=== PATIENT | female | born 1980 | race Hispanic/Latino ===

== ENCOUNTER 2017-12-02 15:21 | Observation (INO) | payer MEDICARE ==
[2017-12-02] MEDS ORDERED: Iohexol 240 (50 ml) PO ONE (15:44)
[2017-12-02] MEDS ORDERED: Sodium Chloride 0.9% 1,000 ML IV STA (15:44)
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
[2017-12-02 16:15] LABS: SQUAMOUS EPITHIAL 20 /hpf (0-5); URINE BACTERIA OCC (<OCC); URINE BILIRUBIN NEGATIVE (NEGATIVE); URINE BLOOD NEGATIVE (NEGATIVE); URINE CLARITY CLOUDY (Clear); URINE COLOR YELLOW (YELLOW); URINE GLUCOSE (UA) NEG (Normal); URINE LEUKOCYTE ESTERASE MOD Leu/uL (Negative); URINE PROTEIN NEGATIVE (NEGATIVE); URINE UROBILINOGEN 0.2-1.0 mg/dL (0.2-1.0)
[2017-12-02 16:25] LABS: PHENCYCLIDINE, UR NEGATIVE (NEGATIVE)
[2017-12-02 16:28] LABS: BARBITURATES, UR NEGATIVE (NEGATIVE); BENZODIAZEPINES, UR POSITIVE (NEGATIVE); OPIATES, UR POSITIVE (NEGATIVE)
[2017-12-02] MEDS ORDERED: Iohexol 240 (50 ml) ONE (16:35)
[2017-12-02 16:38] LABS: BASO # 0.1 K/uL (0.0-0.2); BASO % 0.5 % (0.0-2.0); EOS # 0.1 K/uL (0.0-0.7); HEMOGLOBIN 11.2 g/dL (12.0-16.0); LYMPH # 1.6 K/uL (1.0-4.3); LYMPH % 15.1 % (20.0-40.0); MEAN CELL VOLUME 98.6 fl (81.0-99.0); MEAN CORPUSCULAR HEMOGLOBIN 32.5 pg (27.0-31.0); MEAN PLATELET VOLUME 8.5 fl (7.2-11.7); MONO # 0.6 K/uL (0.0-0.8); MONO % 5.9 % (0.0-10.0); NEUT % 77.5 % (50.0-75.0); RBC 3.45 Mil/uL (3.80-5.20); RED CELL DISTRIBUTION WIDTH 14.9 % (11.5-14.5); WHITE BLOOD COUNT 10.3 K/uL (4.8-10.8)
[2017-12-02 16:39] LABS: VENOUS BLOOD GAS BASE EXCESS -0.5 mmol/L (0.0-2.0); VENOUS BLOOD GAS PCO2 46 mmHg (40-60); VENOUS BLOOD GAS PO2 14 mm/Hg (30-55); VENOUS BLOOD PH 7.35 (7.32-7.43)
[2017-12-02 16:48] LABS: BLOOD UREA NITROGEN 14 mg/dl (7-17); CALCIUM 8.7 mg/dL (8.4-10.2); GFR AFRICAN-AMERICAN > 60; GFR NON-AFRICAN AMERICAN > 60
[2017-12-02 16:49] LABS: ALB/GLOB RATIO 1.3 (1.0-2.1); ALBUMIN 3.4 g/dL (3.5-5.0); ALT/SGPT 49 U/L (9-52); AST/SGOT 29 U/L (14-36); LIPASE 33 U/L (23-300)
[2017-12-02] MEDS ORDERED: Sodium Chloride 0.9% 50 ML IV ONE (17:38)
[2017-12-02] MEDS ORDERED: Iohexol 300 100 ML IJ ONE (17:38)
[2017-12-02 18:07] LABS: ACETAMINOPHEN < 10.0 ug/ml (10.0-30.0); SALICYLATE < 1.0 mg/dl
[2017-12-02] MEDS ORDERED: cefTRIAXone (Rocephin) 1 gm Inj IV STA (18:39)
--- NOTE | 2017-12-02 18:39 | CT ---
PROCEDURE: CT Abdomen and Pelvis with contrast HISTORY: Abdominal pain COMPARISON: None. TECHNIQUE: Contrast dose: 90 cc Visipaque 320 Radiation dose: Total exam DLP = 513.94 mGy-cm. This CT exam was performed using one or more of the following dose reduction techniques: Automated exposure control, adjustment of the mA and/or kV according to patient size, and/or use of iterative reconstruction technique. FINDINGS: LOWER THORAX: Unremarkable. Postoperative findings related to gastric bypass at the gastroesophageal junction. LIVER: Unremarkable. No gross lesion. There is mild intrahepatic bile duct dilatation consistent with prior cholecystectomy. GALLBLADDER AND BILE DUCTS: Status post cholecystectomy. No abnormality is seen in the gallbladder fossa. Common bile duct measures 10.2 mm. The bile duct is seen in its entirety without intrinsic or extrinsic abnormality. PANCREAS: Unremarkable. No gross lesion or ductal dilatation. SPLEEN: Unremarkable. ADRENALS: Unremarkable. No mass. KIDNEYS AND URETERS: Unremarkable. No hydronephrosis. No solid mass. VASCULATURE: Unremarkable. No aortic aneurysm. BOWEL: Postoperative changes left upper quadrant related to gastric bypass. Soft tissue luminal mass proximal small bowel visualized on axial series 3/image 82 and confirmed on coronal series 601/image 36. The appearance suggest intussusception. Proximally the bowel is dilated. Constipation without fecal impaction or obstruction. APPENDIX: Normal appendix. PERITONEUM: Unremarkable. No free fluid. No free air. LYMPH NODES: Unremarkable. No enlarged lymph nodes. BLADDER: Unremarkable. REPRODUCTIVE: Unremarkable. BONES: No acute fracture. OTHER FINDINGS: None. IMPRESSION: CT manifestations of intussusception proximal small bowel described in greater detail above. Postoperative findings left upper quadrant related to gastric bypass. Additional benign and/or incidental findings described above. Communication of results: I discussed findings with the attending physician emergency department Dr. Pan at 18:37. The study was completed at 18:10
[2017-12-02] MEDS ORDERED: cefTRIAXone 1,000 MG in PED IV SYRINGE 1 SYR IVPB STA (18:43)
[2017-12-02] MEDS ORDERED: cefTRIAXone (Rocephin) 1 gm Inj ONE (18:45)
--- NOTE | 2017-12-02 19:54 | CP.PCM.CON ---
<Caden Rosales - Last Filed: 12/02/17 21:09> History of Present Illness - History of Present Illness History of Present Illness: Surgery Consult Note. Dr. Vo 37yo F with PMHx of Anxiety, Bipolar Disorder, Seizure disorder here for evaluation of abdominal pain. As per ED staff, patient was brought in by EMS due to friend noticing increased somnolence and slurred speech. Patient reports that she has had chronic abdominal pain off and on for the past 1 year. She attributes these pains to recurrent UTIs. She states that she usually has nausea and vomiting after she gets UTIs. She states that this episode has been ongoing for the past 2.5 weeks, starts in the left lower back and radiates to the LLQ, LUQ and RUQ. She states that she saw her Pain Management doctor (Dr. Fernandes) on Friday who stated that she needed to be further evaluated by GI and specialists. She has been prescribed Oxycodone 10mg q4h prn however, she states that she has taken more than 15tabs of Oxycodone 10mg over the last 2 days. She states that she also had dysuria, urinary urgency, and urinary frequency over the same period of time and has not been taking any antibiotics during this episode as she "gets these symptoms all the time and is resistant to many different antibiotics she has tried in the past. Patient also reports that she has a hx of Murali-en-Y gastric bypass surgery done in [address] Hernandez in [facility]. She reports complications of intussusception in 2006 and 2007 and had surgical reduction and enteropexy performed by various other surgeons, unable to provide names. She also reports that in 2008, she had a bowel obstruction due to an internal hernia and it was repaired via an exploratory laparotomy by another surgeon, unknown name. She last followed up with Dr. Hernandez 7 months ago. She has had multiple pneumatic esophageal dilatations performed over the past 3 years due to being unable to tolerate PO intake, last performed one year ago by Dr. Hammond. Currently, she reports that her last BM was yesterday morning, and has been having regular flatus. Denies any N/V/D. Denies any fevers or chills. No sick contacts. Denies possible . PMD: none Bariatric Surgeon: Dr. Hernandez in [facility] GI: Dr. Hammond PMHx: Anxiety, Bipolar Disorder, Seizure disorder PSHx: Murali-en-Y Gastric Bypass 2005, Intussusception x 2 w enteropexy 2006, 2007 , Reduction of internal hernia 2008. Multiple pneumatic esophageal dilatations. Surgery on bilateral kidneys for ureteral reflux at age 11 and 15 Family Hx: Non-contributory Social Hx: Current Tobacco use. Denies ETOH. Opioid use. (Hx of Cocaine and MDMA use upon chart review). Allergy: Levofloxacin (Rash) Review of Systems - Review of Systems All systems: reviewed and no additional remarkable complaints except - Constitutional Constitutional: absent: Chills, Fever - Cardiovascular Cardiovascular: absent: Chest Pain, Dyspnea - Respiratory Respiratory: absent: Dyspnea - Gastrointestinal Gastrointestinal: Abdominal Pain. absent: Diarrhea, Hematemesis, Hematochezia, Nausea, Vomiting - Genitourinary Genitourinary: Difficulty Urinating, Dysuria, Urinary Frequency, Urinary Urgency , Freq UTI, Hx /Renal Surgery - Musculoskeletal Musculoskeletal: Back Pain Past Patient History - Infectious Disease Hx of Infectious Diseases: None - Past Medical History & Family History Past Medical History?: Yes Past Family History: Reviewed and not pertinent - Past Social History Smoking Status: Light Smoker < 10 Cigarettes Daily Alcohol: None Drugs: Opiates, Prescription medications - CARDIAC Hx Cardiac Disorders: No - PULMONARY Hx Respiratory Disorders: No - NEUROLOGICAL Hx Seizures: Yes - HEENT Hx HEENT Problems: No - RENAL Other/Comment: Recurrent UTIs per patient - ENDOCRINE/METABOLIC Hx Endocrine Disorders: No - HEMATOLOGICAL/ONCOLOGICAL Hx Human Immunodeficiency Virus (HIV): No - INTEGUMENTARY Hx Dermatological Problems: No - MUSCULOSKELETAL/RHEUMATOLOGICAL Hx Falls: Yes - GASTROINTESTINAL Hx Bowel Surgery: Yes (gastric bypass) Other/Comment: hernia repair 6 yrs ago,intusseption,blockage in the urethra, obstruction in the intestine-6 yrs ago - PSYCHIATRIC Hx Anxiety: Yes Hx Bipolar Disorder: Yes (Possible) - SURGICAL HISTORY Hx Surgeries: Yes Hx Gastric Bypass Surgery: Yes Hx Herniorrhaphy: Yes (abdomnial) Other/Comment: Gastic Bypass, SBO, Hernia - ANESTHESIA Hx Anesthesia: Yes Hx Anesthesia Reactions: No Hx Malignant Hyperthermia: No Meds Allergies/Adverse Reactions: Allergies Allergy/AdvReac Type Severity Reaction Status Date / Time levofloxacin [From Levaquin] Allergy RASH Verified 12/02/15 15:42 Physical Exam - Constitutional Appears: Non-toxic, No Acute Distress - Head Exam Head Exam: ATRAUMATIC, NORMAL INSPECTION, NORMOCEPHALIC - Eye Exam Eye Exam: EOMI, Normal appearance. absent: Scleral icterus - ENT Exam ENT Exam: Mucous Membranes Moist - Respiratory Exam Respiratory Exam: NORMAL BREATHING PATTERN. absent: Accessory Muscle Use, Wheezes - Cardiovascular Exam Cardiovascular Exam: RRR. absent: JVD - GI/Abdominal Exam GI & Abdominal Exam: Soft. absent: Distended, Firm, Guarding, Rebound Additional comments: Tender to palpation in the RUQ, LLQ and LUQ. States that she has some pain radiating to the LUQ and epigastric region upon palpation of the Right Mid Abdomen. No Guarding, soft, non-distended. - Extremities Exam Extremities exam: Positive for: normal inspection. Negative for: calf tenderness - Neurological Exam Neurological exam: Alert, Oriented x3 - Skin Skin Exam: Dry, Intact, Normal Color, Warm Results - Vital Signs Recent Vital Signs: Last Vital Signs Temp 97.7 F 12/02/17 17:18 Pulse 82 12/02/17 17:18 Resp 18 12/02/17 17:18 BP 102/62 12/02/17 17:18 Pulse Ox 97 12/02/17 18:45 - Labs Result Diagrams: 12/02/17 16:34 12/02/17 16:34 Labs: Laboratory Results - last 24 hr 12/02/17 12/02/17 12/02/17 15:44 16:01 16:01 WBC RBC Hgb Hct MCV MCH MCHC RDW Plt Count MPV Neut % (Auto) Lymph % (Auto) [place] % (Auto) Eos % (Auto) Baso % (Auto) Neut # (Auto) Lymph # (Auto) [place] # (Auto) Eos # (Auto) Baso # (Auto) pO2 14 L VBG pH 7.35 VBG pCO2 46 VBG HCO3 22.7 VBG Total CO2 26.8 VBG O2 Sat (Calc) 20.8 L VBG Base Excess -0.5 L VBG Potassium 4.3 Sodium 138.0 Chloride 107.0 Glucose 89 Lactate 0.5 L FiO2 21.0 Potassium Carbon Dioxide Anion Gap BUN Creatinine Est GFR ( Amer) Est GFR (Non-Af Amer) Random Glucose Calcium Total Bilirubin AST ALT Alkaline Phosphatase Total Protein Albumin Globulin Albumin/Globulin Ratio Lipase Venous Blood Potassium 4.3 Urine Color Yellow Urine Clarity Cloudy Urine pH 6.0 Ur Specific [place] 1.018 Urine Protein Negative Urine Glucose (UA) Neg Urine Ketones Negative Urine Blood Negative Urine Nitrate Negative Urine Bilirubin Negative Urine Urobilinogen 0.2-1.0 Ur Leukocyte Esterase Mod Urine RBC (Auto) 3 Urine Microscopic WBC 12 H Ur Squamous Epith Cells 20 H Urine Bacteria Occ H Salicylates Urine Opiates Screen Positive H Urine Methadone Screen Negative Acetaminophen Ur Barbiturates Screen Negative Ur Phencyclidine Scrn Negative Ur Amphetamines Screen Negative U Benzodiazepines Scrn Positive U Oth Cocaine Metabols Negative U Cannabinoids Screen Negative Alcohol, Quantitative 12/02/17 12/02/17 12/02/17 16:34 16:34 17:50 WBC 10.3 D RBC 3.45 L Hgb 11.2 L Hct 34.0 MCV 98.6 D MCH 32.5 H MCHC 33.0 RDW 14.9 H Plt Count 292 MPV 8.5 Neut % (Auto) 77.5 H Lymph % (Auto) 15.1 L [place] % (Auto) 5.9 Eos % (Auto) 1.0 Baso % (Auto) 0.5 Neut # (Auto) 8.0 H Lymph # (Auto) 1.6 [place] # (Auto) 0.6 Eos # (Auto) 0.1 Baso # (Auto) 0.1 pO2 VBG pH VBG pCO2 VBG HCO3 VBG Total CO2 VBG O2 Sat (Calc) VBG Base Excess VBG Potassium Sodium 138 Chloride 107 Glucose Lactate FiO2 Potassium 4.5 Carbon Dioxide 25 Anion Gap 11 BUN 14 Creatinine 0.8 Est GFR ( Amer) > 60 Est GFR (Non-Af Amer) > 60 Random Glucose 87 Calcium 8.7 Total Bilirubin 0.2 AST 29 ALT 49 Alkaline Phosphatase 184 H Total Protein 6.1 L Albumin 3.4 L Globulin 2.7 Albumin/Globulin Ratio 1.3 Lipase 33 Venous Blood Potassium Urine Color Urine Clarity Urine pH Ur Specific [place] Urine Protein Urine Glucose (UA) Urine Ketones Urine Blood Urine Nitrate Urine Bilirubin Urine Urobilinogen Ur Leukocyte Esterase Urine RBC (Auto) Urine Microscopic WBC Ur Squamous Epith Cells Urine Bacteria Salicylates < 1.0 Urine Opiates Screen Urine Methadone Screen Acetaminophen < 10.0 L Ur Barbiturates Screen Ur Phencyclidine Scrn Ur Amphetamines Screen U Benzodiazepines Scrn U Oth Cocaine Metabols U Cannabinoids Screen Alcohol, Quantitative < 10 Assessment & Plan - Assessment and Plan (Free Text) Assessment: 37yo F with left back pain, abdominal pain, and dysuria - CT Abd/Pelvis noted: Possible Intussusception with some proximal bowel dilation. Stool in colon with no signs of acute obstruction. +Constipation Plan: - Patient is currently showing no signs of obstruction. Recommend starting CLD. Advance diet as tolerated - Bowel regimen: Mag citrate and dulcolax suppository - No acute general surgical intervention warranted at this time - Recommend close follow up with patient's bariatric surgeon - continue treatment of UTI as per primary team Further recs as per Dr. Tavo Rosales PGY1 surgery pager: [phone] <Qi Vo - Last Filed: 12/03/17 19:41> Meds - Medications Medications: Current Medications Clonazepam (Klonopin) 1 mg PO BID [facility] Last Admin: 12/03/17 17:37 Dose: 1 mg Enoxaparin Sodium (Lovenox) 40 mg SC DAILY [facility] PRN Reason: Protocol Last Admin: 12/03/17 09:26 Dose: 40 mg Famotidine (Pepcid) 40 mg PO DAILY [facility] Last Admin: 12/03/17 09:26 Dose: 40 mg Sodium Chloride (Sodium Chloride 0.9%) 1,000 mls @ 100 mls/hr IV .Q10H [facility] Stop: 12/03/17 22:14 Last Admin: 12/02/17 22:53 Dose: 100 mls/hr Ceftriaxone Sodium 2 gm/ (Sodium Chloride) 100 mls @ 100 mls/hr IVPB DAILY [facility] PRN Reason: Protocol Last Admin: 12/03/17 09:27 Dose: 100 mls/hr Levetiracetam (Keppra) 750 mg PO TID [facility] Last Admin: 12/03/17 17:33 Dose: 750 mg Oxycodone HCl (Oxycodone Immediate Release Tab) 10 mg PO QID [facility] Last Admin: 12/03/17 17:37 Dose: 10 mg Pantoprazole Sodium (Protonix Ec Tab) 40 mg PO DAILY [facility] Last Admin: 12/03/17 09:26 Dose: 40 mg Topiramate (Topamax) 200 mg PO BID [facility] Last Admin: 12/03/17 17:34 Dose: 200 mg Results - Vital Signs Recent Vital Signs: Last Vital Signs Temp 98.2 F 12/03/17 15:53 Pulse 78 12/03/17 15:53 Resp 18 12/03/17 15:53 BP 90/62 L 12/03/17 15:53 Pulse Ox 98 12/03/17 15:53 - Labs Result Diagrams: 12/03/17 06:10 12/03/17 06:10 Labs: Laboratory Results - last 24 hr 12/03/17 12/03/17 06:10 06:10 WBC 5.3 RBC 3.25 L Hgb 10.9 L Hct 31.6 L MCV 97.5 MCH 33.4 H MCHC 34.3 RDW 14.3 Plt Count 301 Sodium 139 Potassium 4.1 Chloride 110 H Carbon Dioxide 22 Anion Gap 11 BUN 10 Creatinine 0.6 L Est GFR ( Amer) > 60 Est GFR (Non-Af Amer) > 60 Random Glucose 84 Calcium 8.3 L Total Bilirubin 0.6 AST 22 ALT 33 Alkaline Phosphatase 158 H Total Protein 5.7 L Albumin 2.9 L Globulin 2.7 Albumin/Globulin Ratio 1.1 Assessment & Plan - Assessment and Plan (Free Text) Plan: I personally saw and examined the patient at bedside with the resident staff and agree with the above assessment and plan. This is a 37-year-old female status post gastric bypass many years ago she has had a complicated surgical history since that time. She has had multiple reexplorations for internal hernia as well as intussusception there have been multiple surgeons inside her abdomen. Personally reviewed the CT abdomen and pelvis with p.o. and IV contrast. I do see her gastrojejunostomy and staple line looked intact there is no evidence of perforation or leak she does approximately dilated loops of small bowel I am not able to fully identify her jejunojejunostomy anastomosis more distally. I believe this may be the site of what is likely a chronic intussusception. On exam her abdomen is soft nondistended she had does have some slight tenderness over the left lower abdomen she said this has been present for some time now. She is also chronic opioid user taking extremely high amounts of opiates on a daily basis and has chronic constipation with a a significant stool burden throughout her entire colon seen on CT. I discussed with the patient at length that this is the degree of her constipation and narcotic use is likely adding to the current issues and her abdominal symptoms, including recurrent episodes of intussusceptions. We discussed the need to use a daily bowel regimen consisting of stool softeners and suppositories stimulants such as mag citrate as needed. Fortunately she does not have any indications for surgical intervention at this time. However I would recommend she be transferred to the care of her primary bariatric surgeon were she to need any further operations, for higher level of care/complexity. - Date & Time Date: 12/02/17 Time: 18:00
[2017-12-02] MEDS ORDERED: Magnesium Citrate Oral SOL (300 ml) PO ONE ×2 (21:47→22:50)
[2017-12-02] MEDS ORDERED: TOPIRAMATE 200 MG PO SCH (22:30)
[2017-12-02] MEDS ORDERED: Patient's Own Med (Levetiracetam [Keppra] 750 MG) PO SCH (22:30)
[2017-12-02] MEDS: Sodium Chloride 0.9% 1,000 ML IV SCH (22:53)
[2017-12-03 06:43] LABS: HEMOGLOBIN 10.9 g/dL (12.0-16.0); MEAN CELL VOLUME 97.5 fl (81.0-99.0); MEAN CORPUSCULAR HEMOGLOBIN 33.4 pg (27.0-31.0); MEAN CORPUSCULAR HGB CONC 34.3 g/dL (33.0-37.0); RBC 3.25 Mil/uL (3.80-5.20); RED CELL DISTRIBUTION WIDTH 14.3 % (11.5-14.5); WHITE BLOOD COUNT 5.3 K/uL (4.8-10.8)
[2017-12-03 07:33] LABS: ALB/GLOB RATIO 1.1 (1.0-2.1); ALBUMIN 2.9 g/dL (3.5-5.0); ALT/SGPT 33 U/L (9-52); AST/SGOT 22 U/L (14-36); BLOOD UREA NITROGEN 10 mg/dl (7-17); CALCIUM 8.3 mg/dL (8.4-10.2); GFR AFRICAN-AMERICAN > 60; GFR NON-AFRICAN AMERICAN > 60
--- NOTE | 2017-12-03 08:40 | CP.PCM.HP ---
History of Present Illness - History of Present Illness History of Present Illness: CC: abdominal pain HPI: 37 y/o woman w/ pmh of Anxiety, Bipolar Disorder, Seizure disorder presented to the ED for abdominal pain. Patient was brought in by EMS due to friend noticing increased somnolence and slurred speech. Patient reports that she has had chronic abdominal pain off and on for the past 1 year. She attributes these pains to recurrent UTIs. She states that she usually has nausea and vomiting after she gets UTIs. Patient reports pain has been ongoing for the past 2.5 weeks, started in the left lower back and radiates to the LLQ, LUQ and RUQ. Patient states she last saw her Pain Management doctor (Dr. Fernandes) on Friday who stated that she needed to be further evaluated by GI and specialists. Patient was prescribed Oxycodone 10mg q4h prn; however, she states that she has taken more than 15 tabs of Oxycodone 10mg over the last 2 days. She states that she also had dysuria, urinary urgency, and urinary frequency over the same period of time and has not been treated. Patient reports complications of intussusception in 2006 and 2007 and had surgical reduction and enteropexy performed. She also reports that in 2008, she had a bowel obstruction due to an internal hernia and it was repaired via an exploratory laparotomy. Patient has had multiple pneumatic esophageal dilatations performed over the past 3 years due to being unable to tolerate PO intake, last performed one year ago by Dr. Hammnod. Currently, she reports that her last BM was 2 days ago, and has been having regular flatus. Patient denies headaches, chest pain, SOB, nausea, vomiting, diarrhea, fever, chills, or sick contacts. PMD: none Bariatric Surgeon: Dr. Hernandez in [facility] GI: Dr. Hammond PMH: Anxiety, Bipolar Disorder, Seizure disorder meds: see med list allergies: Levofloxacin (Rash) PSH: Murali-en-Y Gastric Bypass 2005, Intussusception x 2 w enteropexy 2006, 2007 , Reduction of internal hernia 2008. Multiple pneumatic esophageal dilatations. Surgery on bilateral kidneys for ureteral reflux at age 11 and 15 Fam: Non-contributory SOC: Current Tobacco use. Denies ETOH. Opioid use. (Hx of Cocaine and MDMA use upon chart review). ROS: 12 points assessed and negative unless otherwise reported in HPI Present on Admission - Present on Admission Any Indicators Present on Admission: No History of DVT/PE: No History of Uncontrolled Diabetes: No Urinary Catheter: No Decubitus Ulcer Present: No Review of Systems - Review of Systems All systems: reviewed and no additional remarkable complaints except - Constitutional Constitutional: absent: Chills, Fever - EENT Eyes: absent: Change in Vision - Cardiovascular Cardiovascular: absent: Chest Pain, Palpitations - Respiratory Respiratory: absent: Dyspnea - Gastrointestinal Gastrointestinal: Abdominal Pain. absent: Nausea, Vomiting - Genitourinary Genitourinary: Dysuria - Integumentary Integumentary: absent: Rash - Neurological Neurological: absent: Dizziness, Headaches Past Patient History - Infectious Disease Hx of Infectious Diseases: None - Past Medical History & Family History Past Medical History?: Yes Past Family History: Reviewed and not pertinent - Past Social History Smoking Status: Light Smoker < 10 Cigarettes Daily Alcohol: None Drugs: Opiates, Prescription medications - CARDIAC Hx Cardiac Disorders: No - PULMONARY Hx Respiratory Disorders: No - NEUROLOGICAL Hx Seizures: Yes - HEENT Hx HEENT Problems: No - RENAL Other/Comment: Recurrent UTIs per patient - ENDOCRINE/METABOLIC Hx Endocrine Disorders: No - HEMATOLOGICAL/ONCOLOGICAL Hx Human Immunodeficiency Virus (HIV): No - INTEGUMENTARY Hx Dermatological Problems: No - MUSCULOSKELETAL/RHEUMATOLOGICAL Hx Falls: Yes - GASTROINTESTINAL Hx Bowel Surgery: Yes (gastric bypass) Other/Comment: hernia repair 6 yrs ago,intusseption,blockage in the urethra, obstruction in the intestine-6 yrs ago - GENITOURINARY/GYNECOLOGICAL Hx Genitourinary Disorders: Yes Hx Urinary Tract Infection: Yes - PSYCHIATRIC Hx Anxiety: Yes Hx Bipolar Disorder: Yes (Possible) - SURGICAL HISTORY Hx Surgeries: Yes Hx Gastric Bypass Surgery: Yes Hx Herniorrhaphy: Yes (abdomnial) Other/Comment: Gastic Bypass, SBO, Hernia - ANESTHESIA Hx Anesthesia: Yes Hx Anesthesia Reactions: No Hx Malignant Hyperthermia: No Meds Allergies/Adverse Reactions: Allergies Allergy/AdvReac Type Severity Reaction Status Date / Time levofloxacin [From Levaquin] Allergy RASH Verified 12/02/15 15:42 Physical Exam - Constitutional Appears: Non-toxic, No Acute Distress - Head Exam Head Exam: ATRAUMATIC, NORMAL INSPECTION, NORMOCEPHALIC - Eye Exam Eye Exam: Normal appearance - ENT Exam ENT Exam: Mucous Membranes Moist - Respiratory Exam Respiratory Exam: Clear to Auscultation Bilateral. absent: Accessory Muscle Use , Decreased Breath Sounds, Rales, Rhonchi, Wheezes, Respiratory Distress - Cardiovascular Exam Cardiovascular Exam: REGULAR RHYTHM, RRR. absent: Tachycardia - GI/Abdominal Exam GI & Abdominal Exam: Normal Bowel Sounds, Soft, Tenderness. absent: Distended - Extremities Exam Extremities exam: Positive for: normal inspection. Negative for: calf tenderness - Neurological Exam Neurological exam: Alert, Oriented x3 - Skin Skin Exam: Dry, Intact, Normal Color, Warm Results - Vital Signs Recent Vital Signs: Last Vital Signs Temp 97.7 F 12/03/17 08:17 Pulse 78 12/03/17 08:17 Resp 18 12/03/17 08:17 BP 100/64 12/03/17 08:17 Pulse Ox 97 12/03/17 08:17 - Labs Result Diagrams: 12/03/17 06:10 12/03/17 06:10 Labs: Laboratory Results - last 24 hr 12/02/17 12/02/17 12/02/17 15:44 16:01 16:01 WBC RBC Hgb Hct MCV MCH MCHC RDW Plt Count MPV Neut % (Auto) Lymph % (Auto) [facility] % (Auto) Eos % (Auto) Baso % (Auto) Neut # (Auto) Lymph # (Auto) [facility] # (Auto) Eos # (Auto) Baso # (Auto) pO2 14 L VBG pH 7.35 VBG pCO2 46 VBG HCO3 22.7 VBG Total CO2 26.8 VBG O2 Sat (Calc) 20.8 L VBG Base Excess -0.5 L VBG Potassium 4.3 Sodium 138.0 Chloride 107.0 Glucose 89 Lactate 0.5 L FiO2 21.0 Potassium Carbon Dioxide Anion Gap BUN Creatinine Est GFR ( Amer) Est GFR (Non-Af Amer) Random Glucose Calcium Total Bilirubin AST ALT Alkaline Phosphatase Total Protein Albumin Globulin Albumin/Globulin Ratio Lipase Venous Blood Potassium 4.3 Urine Color Yellow Urine Clarity Cloudy Urine pH 6.0 Ur Specific [place] 1.018 Urine Protein Negative Urine Glucose (UA) Neg Urine Ketones Negative Urine Blood Negative Urine Nitrate Negative Urine Bilirubin Negative Urine Urobilinogen 0.2-1.0 Ur Leukocyte Esterase Mod Urine RBC (Auto) 3 Urine Microscopic WBC 12 H Ur Squamous Epith Cells 20 H Urine Bacteria Occ H Salicylates Urine Opiates Screen Positive H Urine Methadone Screen Negative Acetaminophen Ur Barbiturates Screen Negative Ur Phencyclidine Scrn Negative Ur Amphetamines Screen Negative U Benzodiazepines Scrn Positive U Oth Cocaine Metabols Negative U Cannabinoids Screen Negative Alcohol, Quantitative 12/02/17 12/02/17 12/02/17 16:34 16:34 17:50 WBC 10.3 D RBC 3.45 L Hgb 11.2 L Hct 34.0 MCV 98.6 D MCH 32.5 H MCHC 33.0 RDW 14.9 H Plt Count 292 MPV 8.5 Neut % (Auto) 77.5 H Lymph % (Auto) 15.1 L [facility] % (Auto) 5.9 Eos % (Auto) 1.0 Baso % (Auto) 0.5 Neut # (Auto) 8.0 H Lymph # (Auto) 1.6 [facility] # (Auto) 0.6 Eos # (Auto) 0.1 Baso # (Auto) 0.1 pO2 VBG pH VBG pCO2 VBG HCO3 VBG Total CO2 VBG O2 Sat (Calc) VBG Base Excess VBG Potassium Sodium 138 Chloride 107 Glucose Lactate FiO2 Potassium 4.5 Carbon Dioxide 25 Anion Gap 11 BUN 14 Creatinine 0.8 Est GFR ( Amer) > 60 Est GFR (Non-Af Amer) > 60 Random Glucose 87 Calcium 8.7 Total Bilirubin 0.2 AST 29 ALT 49 Alkaline Phosphatase 184 H Total Protein 6.1 L Albumin 3.4 L Globulin 2.7 Albumin/Globulin Ratio 1.3 Lipase 33 Venous Blood Potassium Urine Color Urine Clarity Urine pH Ur Specific [place] Urine Protein Urine Glucose (UA) Urine Ketones Urine Blood Urine Nitrate Urine Bilirubin Urine Urobilinogen Ur Leukocyte Esterase Urine RBC (Auto) Urine Microscopic WBC Ur Squamous Epith Cells Urine Bacteria Salicylates < 1.0 Urine Opiates Screen Urine Methadone Screen Acetaminophen < 10.0 L Ur Barbiturates Screen Ur Phencyclidine Scrn Ur Amphetamines Screen U Benzodiazepines Scrn U Oth Cocaine Metabols U Cannabinoids Screen Alcohol, Quantitative < 10 12/03/17 12/03/17 06:10 06:10 WBC 5.3 RBC 3.25 L Hgb 10.9 L Hct 31.6 L MCV 97.5 MCH 33.4 H MCHC 34.3 RDW 14.3 Plt Count 301 MPV Neut % (Auto) Lymph % (Auto) [facility] % (Auto) Eos % (Auto) Baso % (Auto) Neut # (Auto) Lymph # (Auto) [facility] # (Auto) Eos # (Auto) Baso # (Auto) pO2 VBG pH VBG pCO2 VBG HCO3 VBG Total CO2 VBG O2 Sat (Calc) VBG Base Excess VBG Potassium Sodium 139 Chloride 110 H Glucose Lactate FiO2 Potassium 4.1 Carbon Dioxide 22 Anion Gap 11 BUN 10 Creatinine 0.6 L Est GFR ( Amer) > 60 Est GFR (Non-Af Amer) > 60 Random Glucose 84 Calcium 8.3 L Total Bilirubin 0.6 AST 22 ALT 33 Alkaline Phosphatase 158 H Total Protein 5.7 L Albumin 2.9 L Globulin 2.7 Albumin/Globulin Ratio 1.1 Lipase Venous Blood Potassium Urine Color Urine Clarity Urine pH Ur Specific [place] Urine Protein Urine Glucose (UA) Urine Ketones Urine Blood Urine Nitrate Urine Bilirubin Urine Urobilinogen Ur Leukocyte Esterase Urine RBC (Auto) Urine Microscopic WBC Ur Squamous Epith Cells Urine Bacteria Salicylates Urine Opiates Screen Urine Methadone Screen Acetaminophen Ur Barbiturates Screen Ur Phencyclidine Scrn Ur Amphetamines Screen U Benzodiazepines Scrn U Oth Cocaine Metabols U Cannabinoids Screen Alcohol, Quantitative Assessment & Plan (1) Intussusception Status: Acute (2) Urinary tract infection Status: Acute (3) Opiate abuse, episodic Status: Chronic (4) Seizure Status: Chronic - Assessment and Plan (Free Text) Plan: afebrile, non-tachycardic, normotensive General Surgery recommendations appreciated GI consult ordered CT abdomen/pelvis w/ PO and IV contrast: small bowel intussusception c/w ceftriaxone 2 gm IV daily day 1 IVF NS 1 L @ 100 mL/hr advance diet as tolerated, on liquids prophylactic measures: DVT lovenox 40 mg SC daily monitor for acute changes
[2017-12-03] MEDS ORDERED: Patient's Own Med (Famotidine [Pepcid] 40 MG) PO SCH (09:00)
[2017-12-03] MEDS: Enoxaparin 40 mg Syringe SC SCH (09:26)
[2017-12-03] MEDS: Pantoprazole 40 mg EC Tab PO SCH (09:26)
[2017-12-03] MEDS: cefTRIAXone 2 GM in Sodium Chloride 0.9% 100 ML IVPB SCH (09:27)
[2017-12-03] MEDS: oxyCODONE 10 mg Immediate Release Tab PO SCH ×4 (09:30→22:23)
--- NOTE | 2017-12-03 10:15 | CP.PCM.CON ---
<Robyn Condon - Last Filed: 12/03/17 11:21> History of Present Illness - History of Present Illness History of Present Illness: Gastroenterology Fellow/PGY5 Consult Note 37 year old female with PMH of Murali-en-Y 2005, Intussusception s/p reduction, SBO 2008, BiPolar disorder, Anxiety, and seizure disorder presenting with abdominal pain. Patient admits to chronic intermittent abdominal pain with acute onset of severe right upper quadrant pain for two weeks unresponsive to oxycodone used for chronic pain. Associated food vomitus three days before presentation leading to no oral intake until clear liquids received yesterday. Admits to normal bowel movement two days before admission and has had three formed stools since receiving dulcolax suppository. Tolerated clear liquid diet. Endorses three prior pneumatic esophageal dilations from 2013 to 2016 for endorsed esophageal stricture. No prior colonoscopy. Family History- denies stomach cancer, colon cancer Social History- denies tobacco, alcohol, illicit drug use; drug screen 2016 on record review- marijuana, cocaine, MDMA Surgical History- B/L kidney intervention, cholecystectomy, Murali-en-Y, intussusception reduction/enteropexy , internal hernia repair 08/01 SBO 2008 Review of Systems - Review of Systems Review of Systems: 12-point review of systems negative except for as above Past Patient History - Infectious Disease Hx of Infectious Diseases: None - Past Medical History & Family History Past Medical History?: Yes Past Family History: Reviewed and not pertinent - Past Social History Smoking Status: Light Smoker < 10 Cigarettes Daily Alcohol: None Drugs: Opiates, Prescription medications - CARDIAC Hx Cardiac Disorders: No - PULMONARY Hx Respiratory Disorders: No - NEUROLOGICAL Hx Seizures: Yes - HEENT Hx HEENT Problems: No - RENAL Other/Comment: Recurrent UTIs per patient - ENDOCRINE/METABOLIC Hx Endocrine Disorders: No - HEMATOLOGICAL/ONCOLOGICAL Hx Human Immunodeficiency Virus (HIV): No - INTEGUMENTARY Hx Dermatological Problems: No - MUSCULOSKELETAL/RHEUMATOLOGICAL Hx Falls: Yes - GASTROINTESTINAL Hx Bowel Surgery: Yes (gastric bypass) Other/Comment: hernia repair 6 yrs ago,intusseption,blockage in the urethra, obstruction in the intestine-6 yrs ago - GENITOURINARY/GYNECOLOGICAL Hx Genitourinary Disorders: Yes Hx Urinary Tract Infection: Yes - PSYCHIATRIC Hx Anxiety: Yes Hx Bipolar Disorder: Yes (Possible) - SURGICAL HISTORY Hx Surgeries: Yes Hx Gastric Bypass Surgery: Yes Hx Herniorrhaphy: Yes (abdomnial) Other/Comment: Gastic Bypass, SBO, Hernia - ANESTHESIA Hx Anesthesia: Yes Hx Anesthesia Reactions: No Hx Malignant Hyperthermia: No Meds Allergies/Adverse Reactions: Allergies Allergy/AdvReac Type Severity Reaction Status Date / Time levofloxacin [From Levaquin] Allergy RASH Verified 12/02/15 15:42 - Medications Medications: Current Medications Clonazepam (Klonopin) 1 mg PO BID [facility] Last Admin: 12/03/17 09:30 Dose: 1 mg Enoxaparin Sodium (Lovenox) 40 mg SC DAILY [facility] PRN Reason: Protocol Last Admin: 12/03/17 09:26 Dose: 40 mg Famotidine (Pepcid) 40 mg PO DAILY [facility] Last Admin: 12/03/17 09:26 Dose: 40 mg Sodium Chloride (Sodium Chloride 0.9%) 1,000 mls @ 100 mls/hr IV .Q10H [facility] Stop: 12/03/17 22:14 Last Admin: 12/02/17 22:53 Dose: 100 mls/hr Ceftriaxone Sodium 2 gm/ (Sodium Chloride) 100 mls @ 100 mls/hr IVPB DAILY [facility] PRN Reason: Protocol Last Admin: 12/03/17 09:27 Dose: 100 mls/hr Levetiracetam (Keppra) 750 mg PO TID [facility] Last Admin: 12/03/17 09:26 Dose: 750 mg Oxycodone HCl (Oxycodone Immediate Release Tab) 10 mg PO QID [facility] Last Admin: 12/03/17 09:30 Dose: 10 mg Pantoprazole Sodium (Protonix Ec Tab) 40 mg PO DAILY [facility] Last Admin: 12/03/17 09:26 Dose: 40 mg Topiramate (Topamax) 200 mg PO BID [facility] Last Admin: 12/03/17 09:28 Dose: 200 mg Physical Exam - Constitutional Appears: Non-toxic, No Acute Distress - Head Exam Head Exam: ATRAUMATIC, NORMOCEPHALIC - Eye Exam Eye Exam: EOMI, PERRL. absent: Scleral icterus Pupil Exam: PERRL. absent: Miosis, Mydriatic - ENT Exam ENT Exam: Mucous Membranes Moist, Normal Oropharynx - Neck Exam Neck exam: Positive for: Full Rom, Normal Inspection - Respiratory Exam Respiratory Exam: Clear to Auscultation Bilateral. absent: Rales, Rhonchi, Wheezes - Cardiovascular Exam Cardiovascular Exam: RRR, +S1, +S2. absent: Gallop, Rubs - GI/Abdominal Exam GI & Abdominal Exam: Normal Bowel Sounds, Soft, Tenderness. absent: Distended, Firm, Guarding, Organomegaly, Rebound, Rigid Additional comments: RUQ discomfort to palpation - Extremities Exam Extremities exam: Positive for: normal inspection. Negative for: pedal edema - Neurological Exam Neurological exam: Alert, Oriented x3 - Psychiatric Exam Psychiatric exam: Normal Affect, Normal Mood - Skin Skin Exam: Dry, Intact, Normal Color, Warm Results - Vital Signs Recent Vital Signs: Last Vital Signs Temp 97.7 F 12/03/17 08:17 Pulse 78 12/03/17 08:17 Resp 18 12/03/17 08:17 BP 100/64 12/03/17 08:17 Pulse Ox 97 12/03/17 08:17 - Labs Result Diagrams: 12/03/17 06:10 12/03/17 06:10 Labs: Laboratory Results - last 24 hr 12/02/17 12/02/17 12/02/17 15:44 16:01 16:01 WBC RBC Hgb Hct MCV MCH MCHC RDW Plt Count MPV Neut % (Auto) Lymph % (Auto) [place] % (Auto) Eos % (Auto) Baso % (Auto) Neut # (Auto) Lymph # (Auto) [place] # (Auto) Eos # (Auto) Baso # (Auto) pO2 14 L VBG pH 7.35 VBG pCO2 46 VBG HCO3 22.7 VBG Total CO2 26.8 VBG O2 Sat (Calc) 20.8 L VBG Base Excess -0.5 L VBG Potassium 4.3 Sodium 138.0 Chloride 107.0 Glucose 89 Lactate 0.5 L FiO2 21.0 Potassium Carbon Dioxide Anion Gap BUN Creatinine Est GFR ( Amer) Est GFR (Non-Af Amer) Random Glucose Calcium Total Bilirubin AST ALT Alkaline Phosphatase Total Protein Albumin Globulin Albumin/Globulin Ratio Lipase Venous Blood Potassium 4.3 Urine Color Yellow Urine Clarity Cloudy Urine pH 6.0 Ur Specific [place] 1.018 Urine Protein Negative Urine Glucose (UA) Neg Urine Ketones Negative Urine Blood Negative Urine Nitrate Negative Urine Bilirubin Negative Urine Urobilinogen 0.2-1.0 Ur Leukocyte Esterase Mod Urine RBC (Auto) 3 Urine Microscopic WBC 12 H Ur Squamous Epith Cells 20 H Urine Bacteria Occ H Salicylates Urine Opiates Screen Positive H Urine Methadone Screen Negative Acetaminophen Ur Barbiturates Screen Negative Ur Phencyclidine Scrn Negative Ur Amphetamines Screen Negative U Benzodiazepines Scrn Positive U Oth Cocaine Metabols Negative U Cannabinoids Screen Negative Alcohol, Quantitative 12/02/17 12/02/17 12/02/17 16:34 16:34 17:50 WBC 10.3 D RBC 3.45 L Hgb 11.2 L Hct 34.0 MCV 98.6 D MCH 32.5 H MCHC 33.0 RDW 14.9 H Plt Count 292 MPV 8.5 Neut % (Auto) 77.5 H Lymph % (Auto) 15.1 L [place] % (Auto) 5.9 Eos % (Auto) 1.0 Baso % (Auto) 0.5 Neut # (Auto) 8.0 H Lymph # (Auto) 1.6 [place] # (Auto) 0.6 Eos # (Auto) 0.1 Baso # (Auto) 0.1 pO2 VBG pH VBG pCO2 VBG HCO3 VBG Total CO2 VBG O2 Sat (Calc) VBG Base Excess VBG Potassium Sodium 138 Chloride 107 Glucose Lactate FiO2 Potassium 4.5 Carbon Dioxide 25 Anion Gap 11 BUN 14 Creatinine 0.8 Est GFR ( Amer) > 60 Est GFR (Non-Af Amer) > 60 Random Glucose 87 Calcium 8.7 Total Bilirubin 0.2 AST 29 ALT 49 Alkaline Phosphatase 184 H Total Protein 6.1 L Albumin 3.4 L Globulin 2.7 Albumin/Globulin Ratio 1.3 Lipase 33 Venous Blood Potassium Urine Color Urine Clarity Urine pH Ur Specific [place] Urine Protein Urine Glucose (UA) Urine Ketones Urine Blood Urine Nitrate Urine Bilirubin Urine Urobilinogen Ur Leukocyte Esterase Urine RBC (Auto) Urine Microscopic WBC Ur Squamous Epith Cells Urine Bacteria Salicylates < 1.0 Urine Opiates Screen Urine Methadone Screen Acetaminophen < 10.0 L Ur Barbiturates Screen Ur Phencyclidine Scrn Ur Amphetamines Screen U Benzodiazepines Scrn U Oth Cocaine Metabols U Cannabinoids Screen Alcohol, Quantitative < 10 12/03/17 12/03/17 06:10 06:10 WBC 5.3 RBC 3.25 L Hgb 10.9 L Hct 31.6 L MCV 97.5 MCH 33.4 H MCHC 34.3 RDW 14.3 Plt Count 301 MPV Neut % (Auto) Lymph % (Auto) [place] % (Auto) Eos % (Auto) Baso % (Auto) Neut # (Auto) Lymph # (Auto) [place] # (Auto) Eos # (Auto) Baso # (Auto) pO2 VBG pH VBG pCO2 VBG HCO3 VBG Total CO2 VBG O2 Sat (Calc) VBG Base Excess VBG Potassium Sodium 139 Chloride 110 H Glucose Lactate FiO2 Potassium 4.1 Carbon Dioxide 22 Anion Gap 11 BUN 10 Creatinine 0.6 L Est GFR ( Amer) > 60 Est GFR (Non-Af Amer) > 60 Random Glucose 84 Calcium 8.3 L Total Bilirubin 0.6 AST 22 ALT 33 Alkaline Phosphatase 158 H Total Protein 5.7 L Albumin 2.9 L Globulin 2.7 Albumin/Globulin Ratio 1.1 Lipase Venous Blood Potassium Urine Color Urine Clarity Urine pH Ur Specific [place] Urine Protein Urine Glucose (UA) Urine Ketones Urine Blood Urine Nitrate Urine Bilirubin Urine Urobilinogen Ur Leukocyte Esterase Urine RBC (Auto) Urine Microscopic WBC Ur Squamous Epith Cells Urine Bacteria Salicylates Urine Opiates Screen Urine Methadone Screen Acetaminophen Ur Barbiturates Screen Ur Phencyclidine Scrn Ur Amphetamines Screen U Benzodiazepines Scrn U Oth Cocaine Metabols U Cannabinoids Screen Alcohol, Quantitative Assessment & Plan - Assessment and Plan (Free Text) Assessment: 37 year old female with PMH of Murali-en-Y 2005, Intussusception 2006/2007 s/p reduction, SBO 2008, BiPolar disorder, Anxiety, and seizure disorder presenting with abdominal pain. Active treatment of abdominal pain with intussusception noted on CT A/P PO/IV contrast. Endorses three prior pneumatic esophageal dilations from 2013 to 2016 for endorsed esophageal stricture. No prior colonoscopy. Plan: -surgery managing- no surgical intervention planned -tolerating clear liquids, advance as tolerated -supportive care- anti-emetics, pain control, IVFs -continue bowel regimen for constipation noted on CT A/P -counselled to follow up with established GI physician and bariatric surgeon on dischaarge <Mari Arteaga - Last Filed: 12/03/17 20:53> Meds - Medications Medications: Current Medications Bisacodyl (Dulcolax) 10 mg [place] DAILY [facility] Clonazepam (Klonopin) 1 mg PO BID [facility] Last Admin: 12/03/17 17:37 Dose: 1 mg Enoxaparin Sodium (Lovenox) 40 mg SC DAILY [facility] PRN Reason: Protocol Last Admin: 12/03/17 09:26 Dose: 40 mg Famotidine (Pepcid) 40 mg PO DAILY [facility] Last Admin: 12/03/17 09:26 Dose: 40 mg Sodium Chloride (Sodium Chloride 0.9%) 1,000 mls @ 100 mls/hr IV .Q10H [facility] Stop: 12/03/17 22:14 Last Admin: 12/02/17 22:53 Dose: 100 mls/hr Ceftriaxone Sodium 2 gm/ (Sodium Chloride) 100 mls @ 100 mls/hr IVPB DAILY [facility] PRN Reason: Protocol Last Admin: 12/03/17 09:27 Dose: 100 mls/hr Levetiracetam (Keppra) 750 mg PO TID [facility] Last Admin: 12/03/17 17:33 Dose: 750 mg Oxycodone HCl (Oxycodone Immediate Release Tab) 10 mg PO QID [facility] Last Admin: 12/03/17 17:37 Dose: 10 mg Pantoprazole Sodium (Protonix Ec Tab) 40 mg PO DAILY [facility] Last Admin: 12/03/17 09:26 Dose: 40 mg Polyethylene Glycol (Miralax) 17 gm PO TID [facility] Topiramate (Topamax) 200 mg PO BID [facility] Last Admin: 12/03/17 17:34 Dose: 200 mg Results - Vital Signs Recent Vital Signs: Last Vital Signs Temp 98.2 F 12/03/17 15:53 Pulse 78 12/03/17 15:53 Resp 18 12/03/17 15:53 BP 90/62 L 12/03/17 15:53 Pulse Ox 98 12/03/17 15:53 - Labs Result Diagrams: 12/03/17 06:10 12/03/17 06:10 Labs: Laboratory Results - last 24 hr 12/03/17 12/03/17 06:10 06:10 WBC 5.3 RBC 3.25 L Hgb 10.9 L Hct 31.6 L MCV 97.5 MCH 33.4 H MCHC 34.3 RDW 14.3 Plt Count 301 Sodium 139 Potassium 4.1 Chloride 110 H Carbon Dioxide 22 Anion Gap 11 BUN 10 Creatinine 0.6 L Est GFR ( Amer) > 60 Est GFR (Non-Af Amer) > 60 Random Glucose 84 Calcium 8.3 L Total Bilirubin 0.6 AST 22 ALT 33 Alkaline Phosphatase 158 H Total Protein 5.7 L Albumin 2.9 L Globulin 2.7 Albumin/Globulin Ratio 1.1 Attending/Attestation - Attestation I have personally seen and examined this patient.: Yes I have fully participated in the care of the patient.: Yes I have reviewed all pertinent clinical information: Yes Notes (Text): 12/03/17 20:52 37 year old female with PMH of Murali-en-Y 2005, Intussusception 2006/2007 s/p reduction, SBO 2008, BiPolar disorder, Anxiety, and seizure disorder presenting with abdominal pain. Active treatment of abdominal pain with intussusception noted on CT A/P PO/IV contrast. Endorses three prior pneumatic esophageal dilations from 2013 to 2016 for endorsed esophageal stricture. Diet as tolerated. Supportive care with strict bowel regimen. No further GI intervention required. Can follow with outpatient GI upon discharge as they have her extensive history
--- NOTE | 2017-12-03 13:24 | CP.PCM.PN ---
<Jose G Rabago - Last Filed: 12/03/17 13:19> Subjective - Date & Time of Evaluation Date of Evaluation: 12/03/17 Time of Evaluation: 10:30 - Subjective Subjective: Surgery- Dr. Vo Patient seen and examined at bedside this AM. Having continued crampy abdominal pain along left flank. Having BM after suppository. Denies, fevers, chills, chest pain, shortness of breath, nausea, vomiting Objective - Vital Signs/Intake and Output Vital Signs (last 24 hours): Temp Pulse Resp BP Pulse Ox 97.7 F 78 18 100/64 97 12/03/17 08:17 12/03/17 08:17 12/03/17 08:17 12/03/17 08:17 12/03/17 08:17 - Medications Medications: Current Medications Clonazepam (Klonopin) 1 mg PO BID [facility] Last Admin: 12/03/17 09:30 Dose: 1 mg Enoxaparin Sodium (Lovenox) 40 mg SC DAILY [facility] PRN Reason: Protocol Last Admin: 12/03/17 09:26 Dose: 40 mg Famotidine (Pepcid) 40 mg PO DAILY [facility] Last Admin: 12/03/17 09:26 Dose: 40 mg Sodium Chloride (Sodium Chloride 0.9%) 1,000 mls @ 100 mls/hr IV .Q10H [facility] Stop: 12/03/17 22:14 Last Admin: 12/02/17 22:53 Dose: 100 mls/hr Ceftriaxone Sodium 2 gm/ (Sodium Chloride) 100 mls @ 100 mls/hr IVPB DAILY [facility] PRN Reason: Protocol Last Admin: 12/03/17 09:27 Dose: 100 mls/hr Levetiracetam (Keppra) 750 mg PO TID [facility] Last Admin: 12/03/17 09:26 Dose: 750 mg Oxycodone HCl (Oxycodone Immediate Release Tab) 10 mg PO QID [facility] Last Admin: 12/03/17 09:30 Dose: 10 mg Pantoprazole Sodium (Protonix Ec Tab) 40 mg PO DAILY [facility] Last Admin: 12/03/17 09:26 Dose: 40 mg Topiramate (Topamax) 200 mg PO BID [facility] Last Admin: 12/03/17 09:28 Dose: 200 mg - Labs Labs: 12/03/17 06:10 06/06/18 06:10 - Constitutional Appears: Non-toxic, No Acute Distress, Older Than Stated Age - Head Exam Head Exam: ATRAUMATIC - Eye Exam Eye Exam: EOMI. absent: Scleral icterus - ENT Exam ENT Exam: Mucous Membranes Moist - Cardiovascular Exam Cardiovascular Exam: +S1, +S2. absent: Bradycardia, Tachycardia - GI/Abdominal Exam GI & Abdominal Exam: Soft, Tenderness (left flank). absent: Distended, Firm, Guarding, Rigid Additional comments: midline incision well healed - Extremities Exam Extremities Exam: Normal Inspection. absent: Calf Tenderness - Neurological Exam Neurological Exam: Alert, Awake, Oriented x3 - Psychiatric Exam Psychiatric exam: Normal Affect - Skin Skin Exam: Intact, Warm Assessment and Plan - Assessment and Plan (Free Text) Assessment: 37F w/ UTI and severe constipation w/ chronic opiate use no signs of acute obstruction. Plan: - Recommend strict bowel regiment due to chronic narcotic use including upon discharge - Recommend starting CLD. Advance diet as tolerated - Bowel regimen: Mag citrate and dulcolax suppository - No acute general surgical intervention indicated at this time - Recommend close follow up with patient's bariatric surgeon - discussed with patient and agrees to the plan set forth - continue treatment of UTI as per primary team - discussed w/ Dr. Vo surgical attending [facility] PGY1 <Qi Vo - Last Filed: 12/03/17 17:04> Objective - Vital Signs/Intake and Output Vital Signs (last 24 hours): Temp Pulse Resp BP Pulse Ox 98.2 F 78 18 90/62 L 98 12/03/17 15:53 12/03/17 15:53 12/03/17 15:53 12/03/17 15:53 12/03/17 15:53 - Medications Medications: Current Medications Clonazepam (Klonopin) 1 mg PO BID [facility] Last Admin: 12/03/17 09:30 Dose: 1 mg Enoxaparin Sodium (Lovenox) 40 mg SC DAILY [facility] PRN Reason: Protocol Last Admin: 12/03/17 09:26 Dose: 40 mg Famotidine (Pepcid) 40 mg PO DAILY [facility] Last Admin: 12/03/17 09:26 Dose: 40 mg Sodium Chloride (Sodium Chloride 0.9%) 1,000 mls @ 100 mls/hr IV .Q10H [facility] Stop: 12/03/17 22:14 Last Admin: 12/02/17 22:53 Dose: 100 mls/hr Ceftriaxone Sodium 2 gm/ (Sodium Chloride) 100 mls @ 100 mls/hr IVPB DAILY [facility] PRN Reason: Protocol Last Admin: 12/03/17 09:27 Dose: 100 mls/hr Levetiracetam (Keppra) 750 mg PO TID [facility] Last Admin: 12/03/17 09:26 Dose: 750 mg Oxycodone HCl (Oxycodone Immediate Release Tab) 10 mg PO QID [facility] Last Admin: 12/03/17 09:30 Dose: 10 mg Pantoprazole Sodium (Protonix Ec Tab) 40 mg PO DAILY [facility] Last Admin: 12/03/17 09:26 Dose: 40 mg Topiramate (Topamax) 200 mg PO BID [facility] Last Admin: 12/03/17 09:28 Dose: 200 mg - Labs Labs: 12/03/17 06:10 12/03/17 06:10 Assessment and Plan - Assessment and Plan (Free Text) Plan: Patient seen and examined with resident staff. Agree with above assessment and plan. Patient instructed to make appointment with her Bariatric surgeon for follow up after discharge and update him on recent admission and CT imaging results. Aggressive bowel regimen discussed to prevent discomfort and potential cause of recurring issues with small bowel s/p gastric bypass
--- NOTE | 2017-12-03 16:25 | CARD ---
APPROVED REPORT EKG Measurement Heart [id number] <Conclusion> Normal sinus rhythm Normal ECG
[2017-12-04] MEDS: Sodium Chloride 0.9% 1,000 ML IV SCH (04:37)
[2017-12-04 08:34] VITALS: BP 103/62; PULSE 90; RESP 20; TEMP 98; O2SAT 95
--- NOTE | 2017-12-04 08:34 | CP.PCM.PN ---
Subjective - Date & Time of Evaluation Date of Evaluation: 12/04/17 Time of Evaluation: 07:25 - Subjective Subjective: Patient seen and examined this morning at bedside w/ Dr. Villela. There are no acute events, NAD. The patient reports improvement w/ pain. Patient reports dysuria is improving as well. The patient denies headaches, chest pain, SOB, nausea, vomiting, diarrhea, or fever. Objective - Vital Signs/Intake and Output Vital Signs (last 24 hours): Temp Pulse Resp BP Pulse Ox 97.8 F 75 18 94/61 L 97 12/04/17 00:11 12/04/17 00:11 12/04/17 00:11 12/04/17 00:11 12/04/17 00:11 - Medications Medications: Current Medications Bisacodyl (Dulcolax) 10 mg AL DAILY [facility] Clonazepam (Klonopin) 1 mg PO BID [facility] Last Admin: 12/03/17 17:37 Dose: 1 mg Enoxaparin Sodium (Lovenox) 40 mg SC DAILY [facility] PRN Reason: Protocol Last Admin: 12/03/17 09:26 Dose: 40 mg Famotidine (Pepcid) 40 mg PO DAILY [facility] Last Admin: 12/03/17 09:26 Dose: 40 mg Ceftriaxone Sodium 2 gm/ (Sodium Chloride) 100 mls @ 100 mls/hr IVPB DAILY [facility] PRN Reason: Protocol Last Admin: 12/03/17 09:27 Dose: 100 mls/hr Levetiracetam (Keppra) 750 mg PO TID [facility] Last Admin: 12/03/17 17:33 Dose: 750 mg Oxycodone HCl (Oxycodone Immediate Release Tab) 10 mg PO QID [facility] Last Admin: 12/03/17 22:23 Dose: 10 mg Pantoprazole Sodium (Protonix Ec Tab) 40 mg PO DAILY [facility] Last Admin: 12/03/17 09:26 Dose: 40 mg Polyethylene Glycol (Miralax) 17 gm PO TID [facility] Topiramate (Topamax) 200 mg PO BID [facility] Last Admin: 12/03/17 17:34 Dose: 200 mg - Labs Labs: 12/03/17 06:10 12/03/17 06:10 - Constitutional Appears: Non-toxic, No Acute Distress - Head Exam Head Exam: ATRAUMATIC, NORMAL INSPECTION, NORMOCEPHALIC - Eye Exam Eye Exam: Normal appearance - ENT Exam ENT Exam: Mucous Membranes Moist - Neck Exam Neck Exam: Full ROM. absent: Tenderness - Respiratory Exam Respiratory Exam: Clear to Ausculation Bilateral. absent: Accessory Muscle Use , Decreased Breath Sounds, Rales, Rhonchi, Wheezes, Respiratory Distress - Cardiovascular Exam Cardiovascular Exam: REGULAR RHYTHM, RRR. absent: Tachycardia, Murmur - GI/Abdominal Exam GI & Abdominal Exam: Soft, Tenderness, Normal Bowel Sounds. absent: Distended - Extremities Exam Extremities Exam: absent: Calf Tenderness - Neurological Exam Neurological Exam: Alert, Awake, Normal Gait, Oriented x3 - Skin Skin Exam: Dry, Intact, Normal Color, Warm Assessment and Plan (1) Intussusception Status: Acute (2) Urinary tract infection Status: Acute (3) Opiate abuse, episodic Status: Chronic (4) Seizure Status: Chronic - Assessment and Plan (Free Text) Plan: c/w present management afebrile, non-tachycardic, normotensive General Surgery recommendations appreciated GI recommendations appreciated CT abdomen/pelvis w/ PO and IV contrast: small bowel intussusception c/w ceftriaxone 2 gm IV daily day 2 IVF NS 1 L @ 100 mL/hr advance diet as tolerated, regular diet prophylactic measures: DVT lovenox 40 mg SC daily monitor for acute changes
[2017-12-04] MEDS ORDERED: POLYETHYLENE GLYCOL 3350 17 GM/Dose PACKET PO SCH (09:00)
[2017-12-04] MEDS: cefTRIAXone 2 GM in Sodium Chloride 0.9% 100 ML IVPB SCH (09:43)
[2017-12-04] MEDS: Enoxaparin 40 mg Syringe SC SCH (09:44)
[2017-12-04] MEDS: Pantoprazole 40 mg EC Tab PO SCH (09:46)
[2017-12-04] MEDS: oxyCODONE 10 mg Immediate Release Tab PO SCH (09:50)
--- NOTE | 2017-12-04 12:58 | CP.PCM.DIS ---
Provider - Provider Date of Admission: 12/02/17 20:09 Attending physician: Skyler Villela MD Time Spent in preparation of Discharge (in minutes): 15 Diagnosis - Discharge Diagnosis (1) Intussusception Status: Acute (2) Urinary tract infection Status: Acute (3) Opiate abuse, episodic Status: Chronic (4) Seizure Status: Chronic Hospital Course - Lab Results Lab Results: Micro Results 12/02/17 16:01 Urine,Clean Catch Urine Culture - Final Lactobacillus Species 12/02/17 16:15 Blood-Venous Blood Culture - Preliminary NO GROWTH AFTER 24 HOURS 12/02/17 16:00 Blood-Venous Blood Culture - Preliminary NO GROWTH AFTER 24 HOURS Most Recent Lab Values WBC 5.3 K/uL (4.8-10.8) 12/03/17 06:10 RBC 3.25 Mil/uL (3.80-5.20) L 12/03/17 06:10 Hgb 10.9 g/dL (12.0-16.0) L 12/03/17 06:10 Hct 31.6 % (34.0-47.0) L 12/03/17 06:10 MCV 97.5 fl (81.0-99.0) 12/03/17 06:10 MCH 33.4 pg (27.0-31.0) H 12/03/17 06:10 MCHC 34.3 g/dL (33.0-37.0) 12/03/17 06:10 RDW 14.3 % (11.5-14.5) 12/03/17 06:10 Plt Count 301 K/uL (130-400) 12/03/17 06:10 MPV 8.5 fl (7.2-11.7) 12/02/17 16:34 Neut % (Auto) 77.5 % (50.0-75.0) H 12/02/17 16:34 Lymph % (Auto) 15.1 % (20.0-40.0) L 12/02/17 16:34 [place] % (Auto) 5.9 % (0.0-10.0) 12/02/17 16:34 Eos % (Auto) 1.0 % (0.0-4.0) 12/02/17 16:34 Baso % (Auto) 0.5 % (0.0-2.0) 12/02/17 16:34 Neut # (Auto) 8.0 K/uL (1.8-7.0) H 12/02/17 16:34 Lymph # (Auto) 1.6 K/uL (1.0-4.3) 12/02/17 16:34 [place] # (Auto) 0.6 K/uL (0.0-0.8) 12/02/17 16:34 Eos # (Auto) 0.1 K/uL (0.0-0.7) 12/02/17 16:34 Baso # (Auto) 0.1 K/uL (0.0-0.2) 12/02/17 16:34 pO2 14 mm/Hg (30-55) L 12/02/17 15:44 VBG pH 7.35 (7.32-7.43) 12/02/17 15:44 VBG pCO2 46 mmHg (40-60) 12/02/17 15:44 VBG HCO3 22.7 mmol/L 12/02/17 15:44 VBG Total CO2 26.8 mmol/L (22-28) 12/02/17 15:44 VBG O2 Sat (Calc) 20.8 % (40-65) L 12/02/17 15:44 VBG Base Excess -0.5 mmol/L (0.0-2.0) L 12/02/17 15:44 VBG Potassium 4.3 mmol/L (3.6-5.2) 12/02/17 15:44 Sodium 138.0 mmol/L (132-148) 12/02/17 15:44 Chloride 107.0 mmol/L (98-107) 12/02/17 15:44 Glucose 89 mg/dL (65-105) 12/02/17 15:44 Lactate 0.5 mmol/L (0.7-2.1) L 12/02/17 15:44 FiO2 21.0 % 12/02/17 15:44 Sodium 139 mmol/l (132-148) 12/03/17 06:10 Potassium 4.1 MMOL/L (3.6-5.0) 12/03/17 06:10 Chloride 110 mmol/L (98-107) H 12/03/17 06:10 Carbon Dioxide 22 mmol/L (22-30) 12/03/17 06:10 Anion Gap 11 (10-20) 12/03/17 06:10 BUN 10 mg/dl (7-17) 12/03/17 06:10 Creatinine 0.6 mg/dl (0.7-1.2) L 12/03/17 06:10 Est GFR ( Amer) > 60 12/03/17 06:10 Est GFR (Non-Af Amer) > 60 12/03/17 06:10 Random Glucose 84 mg/dL (65-105) 12/03/17 06:10 Calcium 8.3 mg/dL (8.4-10.2) L 12/03/17 06:10 Total Bilirubin 0.6 mg/dl (0.2-1.3) 12/03/17 06:10 AST 22 U/L (14-36) 12/03/17 06:10 ALT 33 U/L (9-52) 12/03/17 06:10 Alkaline Phosphatase 158 U/L (38-126) H 12/03/17 06:10 Total Protein 5.7 G/DL (6.3-8.2) L 12/03/17 06:10 Albumin 2.9 g/dL (3.5-5.0) L 12/03/17 06:10 Globulin 2.7 gm/dL (2.2-3.9) 12/03/17 06:10 Albumin/Globulin Ratio 1.1 (1.0-2.1) 12/03/17 06:10 Lipase 33 U/L (23-300) 12/02/17 16:34 Venous Blood Potassium 4.3 mmol/L (3.6-5.2) 12/02/17 15:44 Urine Color Yellow (YELLOW) 12/02/17 16:01 Urine Clarity Cloudy (Clear) 12/02/17 16:01 Urine pH 6.0 (5.0-8.0) 12/02/17 16:01 Ur Specific [place] 1.018 (1.003-1.030) 12/02/17 16:01 Urine Protein Negative mg/dL (NEGATIVE) 12/02/17 16:01 Urine Glucose (UA) Neg mg/dL (Normal) 12/02/17 16:01 Urine Ketones Negative mg/dL (NEGATIVE) 06/05/18 16:01 Urine Blood Negative (NEGATIVE) 12/02/17 16:01 Urine Nitrate Negative (NEGATIVE) 12/02/17 16:01 Urine Bilirubin Negative (NEGATIVE) 12/02/17 16:01 Urine Urobilinogen 0.2-1.0 mg/dL (0.2-1.0) 12/02/17 16:01 Ur Leukocyte Esterase Mod Zoë/uL (Negative) 12/02/17 16:01 Urine RBC (Auto) 3 /hpf (0-3) 12/02/17 16:01 Urine Microscopic WBC 12 /hpf (0-5) H 12/02/17 16:01 Ur Squamous Epith Cells 20 /hpf (0-5) H 12/02/17 16:01 Urine Bacteria Occ (<OCC) H 12/02/17 16:01 Salicylates < 1.0 mg/dl 12/02/17 17:50 Urine Opiates Screen Positive (NEGATIVE) H 12/02/17 16:01 Urine Methadone Screen Negative (NEGATIVE) 12/02/17 16:01 Acetaminophen < 10.0 ug/ml (10.0-30.0) L 12/02/17 17:50 Ur Barbiturates Screen Negative (NEGATIVE) 12/02/17 16:01 Ur Phencyclidine Scrn Negative (NEGATIVE) 12/02/17 16:01 Ur Amphetamines Screen Negative (NEGATIVE) 12/02/17 16:01 U Benzodiazepines Scrn Positive (NEGATIVE) 12/02/17 16:01 U Oth Cocaine Metabols Negative (NEGATIVE) 12/02/17 16:01 U Cannabinoids Screen Negative (NEGATIVE) 12/02/17 16:01 Alcohol, Quantitative < 10 mg/dl (0-10) 12/02/17 16:34 - Hospital Course Hospital Course: 37 y/o woman w/ pmh of Anxiety, Bipolar Disorder, Seizure disorder presented to the ED for abdominal pain. Patient reports taking increased doses of oxycodone due to pain associated w/ frewuent UTI. Patient found to have intussusception on CT. Patient had previous intussusception in the past for which she had surgical correction. Patient seen by GI and general surgery. Patient reports feeling better and pain is reduced. The patient has been seen, examined, and deemed medically fit for discharge home. The patient is to follow w/ PMD and surgeon Dr. Jaquez in 1-2 weeks. Discharge Exam - Head Exam Head Exam: ATRAUMATIC, NORMAL INSPECTION, NORMOCEPHALIC - Eye Exam Eye Exam: Normal appearance - ENT Exam ENT Exam: Mucous Membranes Moist - Neck Exam Neck exam: Full Rom - Respiratory Exam Respiratory Exam: Clear to PA & Lateral. absent: Accessory Muscle Use, Decreased Breath Sounds, Rales, Rhonchi, Wheezes - Cardiovascular Exam Cardiovascular Exam: REGULAR RHYTHM. absent: Tachycardia - GI/Abdominal Exam GI & Abdominal Exam: Normal Bowel Sounds, Soft. absent: Distended, Tenderness - Extremities Exam Extremities exam: normal inspection - Neurological Exam Neurological exam: Alert, Normal Gait, Oriented x3 - Skin Skin Exam: Dry, Intact, Normal Color, Warm Discharge Plan - Follow Up Plan Condition: FAIR Disposition: HOME/ ROUTINE Instructions: Intussusception (DC), Urinary Tract Infection in Women (DC) Additional Instructions: follow up with Dr. Jaquez in 1 week Referrals: Mari Arteaga MD [Medical Doctor] - Qi Vo MD [Staff Provider] -
== END 2017-12-04 14:29 | disposition home or self-care (01) ==
LOC: H.ER 15:21 → SUPCPDRO 15:21 → H.ERHOLD 20:09 → H.MEDSURG1 21:20
PROVIDERS: ADMIT Internal Medicine; ATTEND Internal Medicine
DX: K56.1 Intussusception (principal); N39.0 Urinary tract infection, site not specified; F11.10 Opioid abuse, uncomplicated; G40.909 Epilepsy, unspecified, not intractable, without status epilepticus; Z98.84 Bariatric surgery status; F31.9 Bipolar disorder, unspecified; F41.9 Anxiety disorder, unspecified; G89.29 Other chronic pain; F17.210 Nicotine dependence, cigarettes, uncomplicated
CPT/HCPCS: 36415; 74177; 80053; 81003; 81025; 82803; 83690; 85025; 85027; 87040; 87086; 93005; 96360; 96365; 96374; 99285; G0378; G0480; J0696; J1650; J1885; J7030; Q9966; Q9967